=== PATIENT | female | born 2005 | race Caucasian/White ===

== ENCOUNTER 2023-05-16 18:19 | Emergency (ER) | payer OTHER ==
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
[2023-05-16] MEDS ORDERED: ACETAMINOPHEN TAB 500 MG TAB PO STA (21:44)
[2023-05-16] MEDS ORDERED: LIDOCAINE 5% PATCH TOPICAL SCH (23:45)
[2023-05-16] MEDS ORDERED: ONDANSETRON ODT 4 MG TAB PO STA (23:54)
[2023-05-17 01:02] LABS: Appearance,Urine Clear (Clear); Bilirubin,Urine Negative (Negative); Blood,Urine Negative (Negative); Color,Urine Light Yellow; Glucose,Urine (UA) Negative (Negative); Ketones,Urine Negative (Negative); Leukocyte Esterase,Urine Negative (Negative); Nitrite,Urine Negative (Negative); PH, Urine 5.5 (5.0-8.0); Protein,Urine Negative (Negative); Urobilinogen,Urine <2.0 mg/dL (<2.0)
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
[2023-05-17] MEDS ORDERED: KETOROLAC 15 MG/ML 1 ML VIAL IM STA (02:56)
[2023-05-17 03:42] VITALS: BP 133/87; PULSE 70; RESP 18; TEMP 98.2
== END 2023-05-17 03:35 | disposition home or self-care (01) ==
LOC: EC 18:19
DX: M79.602 Pain in left arm (principal); V49.9XXA Car occupant (driver) (passenger) injured in unspecified traffic accident, initial encounter; Y92.410 Unspecified street and highway as the place of occurrence of the external cause
CPT/HCPCS: 71045; 72100; 72170; 81003; 81025; 99284

== ENCOUNTER → 2023-11-06 | Outpatient (CLI) | payer OTHER ==
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
== END ==
LOC: RADCTMAIN 12:19
PROVIDERS: ATTEND Family Medicine
DX: G43.909 Migraine, unspecified, not intractable, without status migrainosus (principal)
CPT/HCPCS: 70470; Q9967